=== PATIENT | female | born 1975 | race Two or more races ===

== ENCOUNTER 2022-02-09 17:59 | Inpatient (IN) | payer OTHER ==
[~2022-02-09] VITALS: Ht 157.5 cm; Wt 79.1 kg
[2022-02-09 18:28] LABS: Basophils # (auto) 0.1 10 ^3/uL (0-0.2); Basophils % (auto) 1.1 % (0.0-2.0); Hemoglobin 13.9 g/dL (12.2-16.2)
[2022-02-09 18:30] LABS: Eosinophils # (auto) 0.2 10 ^3/uL (0-0.8); Eosinophils % (auto) 1.7 % (0.0-7.0); Hematocrit 43.4 % (36.0-46.0); Lymphocytes # (auto) 4.5 10 ^3/uL (0.4-5.4); Lymphocytes % (auto) 48.4 % (10.0-50.0); Mean Corpuscular Hemoglobin 24.9 pg (28.0-32.0); Mean Corpuscular Volume 77.8 fL (80.0-100.0); Monocytes # (auto) 0.5 10 ^3/uL (0-1.3); Monocytes % (auto) 5.6 % (0.0-12.0); Neutrophils % (auto) 43.2 % (37.0-80.0); Nucleated Red Blood Cells % 0.1 %; Red Blood Cells 5.58 10^6/uL (4.0-5.20); White Blood Cell 9.3 10^3/uL (4.4-10.8)
[2022-02-09 18:45] LABS: Calcium 10.3 mg/dL (8.5-10.1); Potassium 3.7 mmol/L (3.5-5.1)
[2022-02-09] MEDS ORDERED: ONDANSETRON HCL 4 MG/2 ML VIAL IV ONE (18:45)
[2022-02-09] MEDS ORDERED: MORPHINE SULFATE INJ 2 MG/ml SYRG IV ONE (18:45)
[2022-02-09 18:48] LABS: Bilirubin, Total 0.5 mg/dL (0.2-1.0); Total Protein 7.8 g/dL (6.4-8.2)
[2022-02-09] MEDS ORDERED: SODIUM CHLORIDE 0.9% 1,000 ML IV ONE ×2 (19:00)
[2022-02-09] MEDS ORDERED: ONDANSETRON HCL 4 MG/2 ML VIAL IV PRN (21:00)
[2022-02-09] MEDS ORDERED: cefTRIAXone 1GM/50ML D5W 50 ML IV ONE (22:00)
[2022-02-09] MEDS ORDERED: MORPHINE SULFATE INJ 2 MG/ml SYRG IV PRN (22:00)
[2022-02-09] MEDS ORDERED: metroNIDAZOLE 500MG/100ML 100 ML IV ONE (22:00)
[2022-02-09] MEDS ORDERED: NITROGLYCERIN 0.4 MG SL TAB SL PRN (22:00)
[2022-02-09] MEDS: SODIUM CHLOR 0.9% PF (SALINE LOCK) 10ML VIAL/SYR IV SCH (22:18)
[2022-02-09] MEDS: hydrALAZINE HCL 20 MG/ML VL IV PRN (22:52)
[2022-02-09 22:53] LABS: Urine Bacteria NONE SEEN /hpf (None Seen); Urine Blood 1+ /uL (Negative); Urine Specific Gravity 1.006 (1.001-1.035); Urine WBC 1 /hpf (0 - 5)
[2022-02-09] MEDS: TEMAZEPAM 15 MG CAP PO PRN (23:03)
[2022-02-09] MEDS: IBUPROFEN 600 MG TAB PO PRN (23:48)
[2022-02-10] MEDS: MORPHINE SULFATE INJ 2 MG/ml SYRG IV PRN ×5 (01:11→18:23)
[2022-02-10] MEDS: TEMAZEPAM 15 MG CAP PO PRN ×2 (01:35→22:05)
[2022-02-10] MEDS: metroNIDAZOLE 500MG/100ML 100 ML IV SCH ×3 (05:37→22:05)
[2022-02-10 05:48] LABS: Basophils # (auto) 0.1 10 ^3/uL (0-0.2); Basophils % (auto) 1.1 % (0.0-2.0); Eosinophils # (auto) 0.1 10 ^3/uL (0-0.8); Eosinophils % (auto) 0.6 % (0.0-7.0); Hematocrit 43.9 % (36.0-46.0); Hemoglobin 14.5 g/dL (12.2-16.2); Lymphocytes # (auto) 2.9 10 ^3/uL (0.4-5.4); Lymphocytes % (auto) 26.9 % (10.0-50.0); Mean Corpuscular Hemoglobin 25.2 pg (28.0-32.0); Mean Corpuscular Volume 76.2 fL (80.0-100.0); Monocytes # (auto) 0.7 10 ^3/uL (0-1.3); Monocytes % (auto) 6.3 % (0.0-12.0); Neutrophils # (auto) 7.1 10 ^3/uL (1.6-8.6); Neutrophils % (auto) 65.1 % (37.0-80.0); Nucleated Red Blood Cells % 0.1 %; Red Blood Cells 5.76 10^6/uL (4.0-5.20); Red Cell Distribution Width 15.4 % (11.8-14.3); White Blood Cell 10.9 10^3/uL (4.4-10.8)
[2022-02-10] MEDS: SODIUM CHLOR 0.9% PF (SALINE LOCK) 10ML VIAL/SYR IV SCH ×3 (06:00→22:07)
[2022-02-10 06:10] LABS: Albumin 3.9 g/dL (3.4-5.0); Calcium 9.8 mg/dL (8.5-10.1); Potassium 3.3 mmol/L (3.5-5.1)
[2022-02-10 06:14] LABS: BUN/Creatinine Ratio 12.1; Bilirubin, Total 0.7 mg/dL (0.2-1.0); Total Protein 7.8 g/dL (6.4-8.2)
[2022-02-10] MEDS: FAMOTIDINE (10MG/ML) 2ML VL IV SCH (09:35)
[2022-02-10] MEDS: D5W/SOD CHL 0.45%/KCL 40MEQ 1,000 ML IV SCH ×2 (09:47→22:35)
[2022-02-10 10:34] LABS: INR 0.98 (0.9-1.15); Partial Thromboplastin Time 29.7 sec (24.6-33.4)
[2022-02-10] MEDS ORDERED: QUET300T74 PO (15:53)
[2022-02-10 16:00] VITALS: BP 161/86
[2022-02-10 17:00] VITALS: BP 161/86
[2022-02-10] MEDS: hydrALAZINE HCL 20 MG/ML VL IV PRN (18:16)
[2022-02-10] MEDS: IBUPROFEN 600 MG TAB PO PRN (20:06)
[2022-02-10] MEDS: cefTRIAXone 1GM/50ML D5W 50 ML IV SCH (20:58)
[2022-02-10 22:00] VITALS: BP 153/83
[2022-02-11] VITALS (7 sets, daily range): BP systolic 146–170; BP diastolic 75–97
[2022-02-11] MEDS: MORPHINE SULFATE INJ 2 MG/ml SYRG IV PRN ×5 (01:40→23:07)
[2022-02-11] MEDS: IBUPROFEN 600 MG TAB PO PRN ×2 (03:11→13:00)
[2022-02-11] MEDS: hydrALAZINE HCL 20 MG/ML VL IV PRN ×2 (03:11→13:02)
[2022-02-11] MEDS: metroNIDAZOLE 500MG/100ML 100 ML IV SCH ×3 (06:15→21:53)
[2022-02-11] MEDS: SODIUM CHLOR 0.9% PF (SALINE LOCK) 10ML VIAL/SYR IV SCH (06:15)
[2022-02-11] MEDS: FAMOTIDINE (10MG/ML) 2ML VL IV SCH (09:57)
[2022-02-11] MEDS: D5W/SOD CHL 0.45%/KCL 40MEQ 1,000 ML IV SCH (09:58)
[2022-02-11] MEDS ORDERED: MORPHINE SULFATE 4 MG/ML SYR/VIAL IV PRN (15:15)
[2022-02-11] MEDS ORDERED: HYDROmorphone HCL 2 MG/ML VL/or syr IV PRN ×3 (15:15→16:30)
[2022-02-11] MEDS ORDERED: METOCLOPRAMIDE HCL 5MG/ml INJ 2ml VIAL IV PRN (15:15)
[2022-02-11] MEDS ORDERED: MEPERIDINE HCL (25 MG/ML) 1ML VIAL ONE (15:16)
[2022-02-11] MEDS ORDERED: fentaNYL CITRATE 100 MCG/2 ML VL ONE (15:16)
[2022-02-11] MEDS ORDERED: ONDANSETRON HCL 4 MG/2 ML VIAL ONE (15:16)
[2022-02-11] MEDS ORDERED: ROCURONIUM 10MG/ML 10ML VIAL IV ONE (15:16)
[2022-02-11] MEDS ORDERED: DexAMETHasone SOD PHOS 10MG/1ML VIAL INJ ONE (15:16)
[2022-02-11] MEDS ORDERED: MIDAZOLAM HCL 2MG/2ML 2ml VIAL (1mg/ml) ONE (15:16)
[2022-02-11] MEDS ORDERED: NEOSTIGMINE 1 MG/ML INJ (10mg/10ML VIAL) ONE (15:16)
[2022-02-11] MEDS ORDERED: GLYCOPYRROLATE 0.2 MG/ML 1ML VIAL ONE (15:16)
[2022-02-11] MEDS ORDERED: SODIUM CHLORIDE LOCK 20 ML ONE (15:16)
[2022-02-11] MEDS ORDERED: ceFAZolin 1GM/50ML 100 ML IV ONE (15:24)
[2022-02-11] MEDS ORDERED: BUPIVACAINE W/ EPINEPH 0.25% INJ 50ML MDV ONE (15:58)
[2022-02-11] MEDS ORDERED: POVIDONE IODINE 10 % TOPICAL OINT 30GM TOP ONE (15:59)
[2022-02-11] MEDS ORDERED: SUCCINYLCHOLINE CHLORIDE 20 MG/ML 10ML VIAL IV ONE (16:12)
[2022-02-11] MEDS ORDERED: SUGAMMADEX 200mg/2ml Vial (100MG/ML) IV ONE (16:14)
[2022-02-11] MEDS: D5W/SOD CHL 0.45%/KCL 20MEQ 1,000 ML IV SCH (18:48)
[2022-02-11] MEDS: ceFAZolin 1GM/50ML 50 ML IV SCH (21:10)
[2022-02-11] MEDS: TEMAZEPAM 15 MG CAP PO PRN (21:54)
[2022-02-11] MEDS: cefTRIAXone 1GM/50ML D5W 50 ML IV SCH (23:06)
[2022-02-12] MEDS: D5W/SOD CHL 0.45%/KCL 20MEQ 1,000 ML IV SCH ×3 (00:50→17:30)
[2022-02-12] MEDS: MORPHINE SULFATE INJ 2 MG/ml SYRG IV PRN ×3 (03:12→11:27)
[2022-02-12 05:00] VITALS: BP 143/78
[2022-02-12] MEDS: ceFAZolin 1GM/50ML 50 ML IV SCH ×2 (05:58→15:15)
[2022-02-12] MEDS: IBUPROFEN 600 MG TAB PO PRN (05:58)
[2022-02-12] MEDS: metroNIDAZOLE 500MG/100ML 100 ML IV SCH ×2 (06:48→15:15)
[2022-02-12 08:30] VITALS: BP 147/80
[2022-02-12 09:00] VITALS: BP 147/80
[2022-02-12] MEDS: FAMOTIDINE (10MG/ML) 2ML VL IV SCH (09:24)
[2022-02-12 13:00] VITALS: BP 150/80
[2022-02-12] MEDS: HYDROcodone-ACET 5/325MG TAB PO PRN ×2 (16:27→23:07)
[2022-02-12] MEDS ORDERED: IBUPROFEN 600 MG TAB PO PRN (16:30)
[2022-02-12 17:00] VITALS: BP 150/82
[2022-02-12 22:00] VITALS: BP 151/89
[2022-02-13] MEDS: ceFAZolin 1GM/50ML 50 ML IV SCH ×2 (00:46→11:09)
[2022-02-13] MEDS: D5W/SOD CHL 0.45%/KCL 20MEQ 1,000 ML IV SCH ×2 (02:03→10:10)
[2022-02-13] MEDS: metroNIDAZOLE 500MG/100ML 100 ML IV SCH ×2 (02:05→11:10)
[2022-02-13] MEDS: HYDROcodone-ACET 5/325MG TAB PO PRN ×3 (03:55→12:14)
[2022-02-13 05:00] VITALS: BP 140/82
[2022-02-13 08:00] VITALS: BP 152/86
[2022-02-13 08:15] VITALS: BP 152/86
[2022-02-13] MEDS ORDERED: HYDR-4902 PO (10:31)
[2022-02-13] MEDS: FAMOTIDINE (10MG/ML) 2ML VL IV SCH (11:10)
== END 2022-02-13 15:03 | disposition home or self-care (01) | DRG 228 ==
LOC: ER 17:59 → OVERFLOW 21:58 → WEST WING 02-10 15:54
PROVIDERS: ADMIT Nurse Practitioner Family; ATTEND Internal Medicine
PROC: 0WUF0KZ Supplement Abdominal Wall with Nonautologous Tissue Substitute, Open Approach (ICD-10-PCS; principal; 2022-02-11 15:36)
DX: K42.0 Umbilical hernia with obstruction, without gangrene (principal); E66.9 Obesity, unspecified; E87.6 Hypokalemia; I10 Essential (primary) hypertension; K66.0 Peritoneal adhesions (postprocedural) (postinfection); R73.9 Hyperglycemia, unspecified; Z20.822 Contact with and (suspected) exposure to COVID-19; Z90.49 Acquired absence of other specified parts of digestive tract; Z68.31 Body mass index [BMI] 31.0-31.9, adult
CPT/HCPCS: 36415; 71045; 74176; 80053; 81001; 82150; 82310; 83605; 83690; 84702; 85025; 85610; 85730; 87040; 87426; 96361; 96365; 96375; G0378; J0330; J0690; J0696; J1100; J2250; J2405; J3490

== ENCOUNTER 2022-02-27 09:09 | Emergency (ER) | payer OTHER ==
[~2022-02-27] VITALS: Ht 157.5 cm; Wt 80.7 kg
[~2022-02-27 09:09] MED LIST: HYDR-4902 PO; QUET300T74 PO
[2022-02-27] MEDS ORDERED: QUET300T14 PO (10:06)
[2022-02-27 10:14] VITALS: BP 128/94
== END 2022-02-27 10:17 | disposition home or self-care (01) ==
LOC: ER 09:09
DX: F41.9 Anxiety disorder, unspecified (principal); F32.9 Major depressive disorder, single episode, unspecified; Z76.0 Encounter for issue of repeat prescription

== ENCOUNTER 2022-04-05 09:19 | Emergency (ER) | payer OTHER ==
[~2022-04-05] VITALS: Ht 160 cm; Wt 79.7 kg
[~2022-04-05 09:19] MED LIST changes: +QUET300T14 PO
[2022-04-05 10:53] VITALS: BP 128/85
[2022-04-05] MEDS ORDERED: TRAM-297 PO (10:59)
[2022-04-05] MEDS ORDERED: CLIN300C8 PO (10:59)
[2022-04-05] MEDS ORDERED: HYDROcodone-ACET 5/325MG TAB PO ONE (11:00)
== END 2022-04-05 11:07 | disposition home or self-care (01) ==
LOC: ER 09:25
DX: K04.7 Periapical abscess without sinus (principal); F41.9 Anxiety disorder, unspecified; F32.9 Major depressive disorder, single episode, unspecified; Z79.899 Other long term (current) drug therapy

== ENCOUNTER 2022-05-14 09:11 | Emergency (ER) | payer MEDICAID, OTHER ==
[~2022-05-14] VITALS: Ht 157.5 cm; Wt 79.2 kg
[~2022-05-14 09:11] MED LIST changes: +CLIN300C8 PO; -QUET300T14 PO; +TRAM-297 PO
[2022-05-14 10:55] VITALS: BP 95/60
[2022-05-14] MEDS ORDERED: QUET300T4 PO (11:33)
== END 2022-05-14 11:44 | disposition home or self-care (01) ==
LOC: ER 09:11
DX: F31.9 Bipolar disorder, unspecified (principal); Z76.0 Encounter for issue of repeat prescription; Z79.2 Long term (current) use of antibiotics; Z79.899 Other long term (current) drug therapy

== ENCOUNTER 2022-08-09 09:44 | Emergency (ER) | payer MEDICAID ==
[~2022-08-09] VITALS: Ht 160 cm; Wt 78.3 kg
[~2022-08-09 09:44] MED LIST changes: +QUET300T4 PO
[2022-08-09 10:30] VITALS: BP 127/73
[2022-08-09] MEDS ORDERED: QUET300T74 PO (10:53)
== END 2022-08-09 11:02 | disposition home or self-care (01) ==
LOC: ER 09:44
DX: F31.9 Bipolar disorder, unspecified (principal); Z76.0 Encounter for issue of repeat prescription; Z79.2 Long term (current) use of antibiotics; Z79.899 Other long term (current) drug therapy

== ENCOUNTER 2022-08-27 09:45 | Emergency (ER) | payer MEDICAID ==
[~2022-08-27] VITALS: Ht 157.5 cm; Wt 78.6 kg
[2022-08-27 10:02] VITALS: BP 144/75
[2022-08-27] MEDS ORDERED: AUG875T PO (10:37)
[2022-08-27] MEDS ORDERED: IBUP600T28 PO (10:37)
[2022-08-27] MEDS ORDERED: HYDROcodone-ACET 5/325MG TAB PO ONE (10:45)
[2022-08-27] MEDS ORDERED: DexAMETHasone SOD PHOS 10MG/1ML VIAL INJ IM ONE (10:45)
[2022-08-27] MEDS ORDERED: cefTRIAXone SOD 1,000 MG VL IM ONE (10:45)
== END 2022-08-27 11:31 | disposition home or self-care (01) ==
LOC: ER 09:45
DX: K04.7 Periapical abscess without sinus (principal); F41.9 Anxiety disorder, unspecified; F32.9 Major depressive disorder, single episode, unspecified
CPT/HCPCS: 96372; 99284; J0696; J1100

== ENCOUNTER 2022-09-25 08:45 | Emergency (ER) | payer MEDICAID ==
[~2022-09-25] VITALS: Ht 154.9 cm; Wt 79.0 kg
[~2022-09-25 08:45] MED LIST changes: +AUG875T PO; +CLIN300C70 PO; -CLIN300C8 PO; +IBUP1TAB5 PO
[2022-09-25 09:27] VITALS: BP 144/76
[2022-09-25] MEDS ORDERED: QUET300T14 PO (09:39)
== END 2022-09-25 09:44 | disposition home or self-care (01) ==
LOC: ER 08:45
DX: F41.9 Anxiety disorder, unspecified (principal); F32.9 Major depressive disorder, single episode, unspecified; G47.00 Insomnia, unspecified; Z76.0 Encounter for issue of repeat prescription

== ENCOUNTER 2023-10-24 20:39 | Emergency (ER) | payer MEDICAID, OTHER ==
[~2023-10-24 20:39] MED LIST changes: +CLIN1CAP70 PO; -CLIN300C70 PO; +QUET300T14 PO
[2023-10-25] MEDS ORDERED: BACL10TA PO (02:35)
[2023-10-25] MEDS ORDERED: IBUP-1454 PO (02:35)
[2023-10-25] MEDS ORDERED: IBUP1TAB5 PO (02:35)
[2023-10-25] MEDS: HYDROcodone-ACET 5/325MG TAB PO ONE (04:23)
[2023-10-25 05:53] VITALS: BP 143/88; PULSE 88; RESP 20; TEMP 98.4; O2SAT 99
== END 2023-10-25 05:53 | disposition home or self-care (01) ==
LOC: ER 20:39
DX: S13.8XXA Sprain of joints and ligaments of other parts of neck, initial encounter (principal); S43.491A Other sprain of right shoulder joint, initial encounter; F41.9 Anxiety disorder, unspecified; F32.9 Major depressive disorder, single episode, unspecified; Z79.899 Other long term (current) drug therapy; W22.8XXA Striking against or struck by other objects, initial encounter; Y93.89 Activity, other specified; Y92.89 Other specified places as the place of occurrence of the external cause; Y99.0 Civilian activity done for income or pay
CPT/HCPCS: 72040; 73030

== ENCOUNTER 2023-11-04 22:25 | Emergency (ER) | payer OTHER ==
[~2023-11-04] VITALS: Ht 157.5 cm; Wt 77.2 kg
[~2023-11-04 22:25] MED LIST changes: +BACL10TA PO
[2023-11-04] MEDS: cloNIDine HCL 0.1 MG TAB PO ONE (23:14)
[2023-11-05] MEDS ORDERED: AML5T PO (00:28)
[2023-11-05 01:19] VITALS: BP 127/71; PULSE 77; RESP 16; O2SAT 96
== END 2023-11-05 01:21 | disposition home or self-care (01) ==
LOC: ER 22:25
DX: R04.0 Epistaxis (principal); I10 Essential (primary) hypertension; F41.9 Anxiety disorder, unspecified; F32.A Depression, unspecified; Z79.899 Other long term (current) drug therapy

== ENCOUNTER 2024-03-24 06:34 | Emergency (ER) | payer SELFPAY ==
[~2024-03-24] VITALS: Ht 157.5 cm; Wt 77.3 kg
[~2024-03-24 06:34] MED LIST changes: +AML5T PO
[2024-03-24 07:19] VITALS: BP 145/80; PULSE 85; RESP 18; TEMP 97.1; O2SAT 97
[2024-03-24] MEDS ORDERED: TRAM50TA2 PO (07:51)
[2024-03-24] MEDS ORDERED: ACET500T58 PO (07:51)
--- NOTE | 2024-03-24 07:55 | ED.PDOC ---
Musculoskeletal HPI Comments Portions of this chart may have been created with an modal fluency direct voice recognition software. Occasional wrong-word or "sound-alike" substitutions may have occurred due to the inherent limitations of voice recognition software. Please read the chart carefully and recognize, using context, where these substitutions have occurred. This is a pleasant 49-year-old female with a history of torn rotator cuff that presents with a chief complaint of right shoulder pain. Onset occurred approximately six months ago admits this is a work-related injury. Reports she is currently following up with Noah Ibrahim on May 07 Chief Complaint: Upper Extremity Time Seen by MD: 06:59 Primary Care Provider: NONE Reviewed Notes: Nurses Notes, Medications, Allergies Allergies: Coded Allergies: NO KNOWN ALLERGIES (Unverified , 02/09/22) Home Meds Active Scripts Amlodipine Besylate (NORVASC TABLET) 5 Mg Tb, 1 TAB PO DAILY, #30 TAB 5 Refills Prov:ONUR VIEIRA BOND WRITER 11/05/23 Baclofen (Baclofen) 10 Mg Tab, 10 MG PO Q8HPRN PRN, #15 TAB as needed for muscle spasm Prov:SANCHEZMELISSAA Q MUSCULOSKELETAL PHYSICIAN 10/25/23 Ibuprofen Micronized (Ibuprofen) 600 Mg Tab, 600 MG PO Q6HPRN PRN, #20 TAB as needed for pain Prov:SANCHEZMELISSAA Q MUSCULOSKELETAL PHYSICIAN 10/25/23 Quetiapine Fumerate (Seroquel) 300 Mg Tab, 2 TAB PO QPM, #14 TAB 0 Refills As needed for insomnia Prov:SANCHEZTANYAALDA Q MUSCULOSKELETAL PHYSICIAN 09/25/22 Ibuprofen Micronized (Ibuprofen) 600 Mg Tab, 600 MG PO Q8HPRN PRN, #30 TAB 0 Refills Prov:SIENNA HENDRICKSON BOND WRITER 08/27/22 Amoxicillin & Pot Clavulanate (AUGMENTIN TABLET) 875 Mg Tb, 875 MG PO BID for 10 Days, #20 TAB 0 Refills Prov:SIENNA HENDRICKSON BOND WRITER 08/27/22 Quetiapine Fumarate (Quetiapine Fumarate ER) 300 Mg Tab, 2 TAB PO HS, #40 TAB Prov:BERNARDA FIGUEROA 08/09/22 Quetiapine Fumerate (Seroquel Xr) 300 Mg Tab, 2 TAB PO QPM, #40 TAB 0 Refills Prov:SIENNA HENDRICKSON Shawanda BOND WRITER 05/14/22 Tramadol Hcl (Ultram) 50 Mg Tab, 1 TAB PO TID, #20 TAB Prov:BERNARDA FIGUEROA 04/05/22 Clindamycin Hcl (Clindamycin Hcl) 300 Mg Cap, 300 MG PO QID, #40 CAP Prov:BERNARDA FIGUEROA 04/05/22 Hydrocodone-Acetaminophen (Hydrocodone Bitartrate/AC 5-325 mg) 1 Tab Tab, 1 TAB PO Q4HPRN PRN, #20 TAB Prov:CARLOS MANUEL THOMAS MD 02/13/22 Information Source: Patient Mode of Arrival: Ambulatory Past Medical History PAST MEDICAL HISTORY: Anxiety, Depression Surgical History: Denies all surgeries BOILER COVERER History: No Pertinent BOILER COVERER History Family History Family History: Reviewed,noncontributory to illness, No family hx of Cancer, No family hx of DM, No family hx of Heart seth, No family hx of HTN, No family hx ofKidney seth, No family hx of Liver seth, No family hx of Lung seth, No family hx of Stroke Social History Smoker: Non-Smoker Alcohol: Denies ETOH Use Drugs: Denies Drug Use Lives In: Home Physical Exam General Appearance: No Apparent Distress, Normal HEENT: Normal ENT Inspection, Pharynx Normal, TMs Normal Neck: Full Range of Motion, Non-Tender, Normal, Normal Inspection Respiratory: Chest Non-Tender, Lungs Clear, No Accessory Muscle Use, No Resp iratory Distress, Normal Breath Sounds Cardiovascular: No Edema, No JVD, No Murmur, No Gallop, Normal Peripheral Pulses, Regular Rate/Rhythm Breast Exam: Deferred Gastrointestinal: No Organomegaly, Non Tender, No Pulsatile Mass, Normal Bowel Sounds, Soft Genitalia: Deferred Pelvic: Deferred Rectal: Deferred Extremities: No calf tenderness, Normal capillary refill, Normal inspection, Normal range of motion, Non-tender, No pedal edema Musculoskeletal : Location: Right Extremity Location: Shoulder (normal on inspection. pain with abduction) Apperance: Normal Neurologic: Alert, education professional II-XII nml as Tested, No Motor Deficits, Normal Affect, Normal Mood, No Sensory Deficits Cerebellar Function: Normal Reflexes: Normal Skin: Dry, Normal Color, Warm Lymphatic: No Adenopathy Was a procedure done? Was a procedure done?: No Differential Diagnosis EXT Differential Diagnosis: Sprain, Other X-Ray, Labs, Meds, VS Vital Signs Date Time Temp Pulse Resp B/P (MAP) Pulse Ox O2 Delivery O2 Flow Rate FiO2 03/24/24 07:19 97.1 85 18 145/80 (101) 97 97.1 03/24/24 07:19 85 18 97 Room Air 03/24/24 06:39 97.1 85 18 145/80 (101) 97 X-Ray, Labs, Meds, VS Comment History and physical exam consistent with muscle injury Supportive care advised (rest, ice, heat, NSAIDs, stretching exercises) Massage muscles with cold pack or ice for 20 minutes 4 times per day. Usually most useful if there is swelling during the first 48 hours Heating pad on the most painful area for 20 minutes to relieve muscle spasm Sleep and the most comfortable sleeping position (usually on the side with knees bent) Light stretching, no strenuous activity, avoid frequent bending, avoid carrying heavy objects Discussed possible benefits of yoga and acupuncture Return precautions discussed including Inability to walk/bear weight Paresthesia/weakness/leg pain Fecal/urinary incontinence Any worsening symptoms Patient is stable for discharge at this time. External notes reviewed. Test results and diagnostic imaging interpreted. All diagnostic findings, discharge care, education and instructions provided Follow-up with PCP in 2 to 3 days Patient verbalized understanding and agreed to treatment plan Vital signs stable, afebrile, no acute distress noted Patient ambulatory with strong steady gait Advised to return precautions for any new or worsening symptoms, return to ER immediately for re-evaluation Patient is aware that the purpose of this visit was for an acute medical emergency requiring emergent stabilization. Chronic conditions, including malignancies have not been ruled out. Patient is instructed to follow up with PCP as directed and discharge instructions for continued care and workup. If unable to arrange follow-up, patient is to return to the emergency department for reassessment. Patient (parent or legal guardian if applicable) was given verbal and written discharge instructions and acknowledges understanding. Time of 1ST Reevaluation: 07:48 Reevaluation 1ST: Improved Patient Education/Counseling: Diagnosis, Treatment Family Education/Counseling: Diagnosis, Treatment Departure 1 Departure Time of Disposition: 07:49 Impression: Primary Impression: Internal derangement of shoulder Qualified Codes: M24.811 - Other specific joint derangements of right shoulder, not elsewhere classified Disposition: 01 HOME / SELF CARE / HOMELESS Condition: Stable e-Prescriptions Acetaminophen (Acetaminophen) 500 Mg Tab 500 MG PO QIDP for 10 Days, #40 TAB 0 Refills Prov: KRISTIE UGARTE NP 03/24/24 Tramadol Hcl (Tramadol Hcl) 50 Mg Tab 50 MG PO TIDPRN PRN for 10 Days, #30 TAB 0 Refills Prov: KRISTIE UGARTE NP 03/24/24 Discharged With: Self Critical Care Note Critical Care Time?: No Stability Stability form required: No Heart Score Heart Score: Heart Score Response (Comments) Value History N/A 0 EKG N/A 0 Age N/A 0 Risk Factors N/A 0 Troponin N/A 0 Total 0 KRISTIE UGARTE NP Mar 24, 2024 07:55
== END 2024-03-24 07:59 | disposition home or self-care (01) ==
LOC: ER 06:34
DX: M24.811 Other specific joint derangements of right shoulder, not elsewhere classified (principal); F32.A Depression, unspecified; F41.9 Anxiety disorder, unspecified; Z79.899 Other long term (current) drug therapy

== ENCOUNTER 2024-05-18 09:06 | Emergency (ER) | payer MEDICAID, OTHER ==
[~2024-05-18] VITALS: Ht 157.5 cm; Wt 81.3 kg
[~2024-05-18 09:06] MED LIST changes: +ACET500T58 PO; +TRAM50TA2 PO
[2024-05-18 09:59] VITALS: BP 154/90; PULSE 75; RESP 16; TEMP 97.7; O2SAT 95
[2024-05-18] MEDS ORDERED: QUET50TA27 PO (10:24)
[2024-05-18] MEDS ORDERED: QUET300T4 PO (10:32)
--- NOTE | 2024-05-18 10:32 | ED.PDOC ---
Psychiatric HPI Comments 49 year old with hx of bipolar presents for medication refill Chief Complaint: Anxiety Time Seen by MD: 09:42 Primary Care Provider: NONE Reviewed Notes: Nurses Notes, Medications, Allergies Information Source: Patient Mode of Arrival: Ambulatory Past Medical History PAST MEDICAL HISTORY: Anxiety, Depression Surgical History: Denies all surgeries SPORTS MARKETER History: No Pertinent SPORTS MARKETER History Family History Family History: Reviewed,noncontributory to illness, No family hx of Cancer, No family hx of DM, No family hx of Heart seth, No family hx of HTN, No family hx ofKidney seth, No family hx of Liver seth, No family hx of Lung seth, No family hx of Stroke Social History Smoker: Non-Smoker Alcohol: Denies ETOH Use Drugs: Denies Drug Use Lives In: Home All Other Systems: Reviewed and Negative (per hpi) Physical Exam General Appearance: No Apparent Distress, Normal HEENT: Normal ENT Inspection, Pharynx Normal, TMs Normal Neck: Full Range of Motion, Non-Tender, Normal, Normal Inspection Respiratory: Chest Non-Tender, Lungs Clear, No Accessory Muscle Use, No Respiratory Distress, Normal Breath Sounds Cardiovascular: No Edema, No JVD, No Murmur, No Gallop, Normal Peripheral Pulses, Regular Rate/Rhythm Breast Exam: Deferred Gastrointestinal: No Organomegaly, Non Tender, No Pulsatile Mass, Normal Bowel Sounds, Soft Genitalia: Deferred Pelvic: Deferred Rectal: Deferred Extremities: No calf tenderness, Normal capillary refill, Normal inspection, Normal range of motion, Non-tender, No pedal edema Musculoskeletal : Apperance: Normal Neurologic: Alert, meteorological technician II-XII nml as Tested, No Motor Deficits, Normal Affect, Normal Mood, No Sensory Deficits Cerebellar Function: Normal Reflexes: Normal Skin: Dry, Normal Color, Warm Lymphatic: No Adenopathy Was a procedure done? Was a procedure done?: No Psych Differential Dx Psych. Differential Dx: Anxiety, Bipolar Disorder X-Ray, Labs, Meds, VS Vital Signs Date Time Temp Pulse Resp B/P (MAP) Pulse Ox O2 Delivery O2 Flow Rate FiO2 05/18/24 09:59 97.7 75 16 154/90 (111) 95 97.7 05/18/24 09:59 75 16 95 Room Air 05/18/24 09:20 97.7 75 16 154/90 (111) 95 X-Ray, Labs, Meds, VS Comment Med refill Time of 1ST Reevaluation: 10:30 Reevaluation 1ST: Improved Patient Education/Counseling: Diagnosis, Treatment Family Education/Counseling: Diagnosis, Treatment Departure 1 Departure Time of Disposition: 10:32 Impression: Primary Impression: History of bipolar disorder Additional Impression: Encounter for medication refill Disposition: HOME / SELF CARE / HOMELESS Condition: Stable e-Prescriptions Quetiapine Fumerate (Seroquel Xr) 300 Mg Tab 2 TAB PO QPM for 30 Days, #60 TAB 0 Refills Prov: KRISTIE UGARTE NP 05/18/24 Discharged With: Self Critical Care Note Critical Care Time?: No Stability Stability form required: No Heart Score Heart Score: Heart Score Response (Comments) Value History N/A 0 EKG N/A 0 Age N/A 0 Risk Factors N/A 0 Troponin N/A 0 Total 0 KRISTIE UGARTE NP May 18, 2024 10:32
== END 2024-05-18 10:41 | disposition home or self-care (01) ==
LOC: ER 09:06
DX: F31.9 Bipolar disorder, unspecified (principal); F41.9 Anxiety disorder, unspecified; Z76.0 Encounter for issue of repeat prescription

== ENCOUNTER 2024-08-09 09:09 | Emergency (ER) | payer MEDICAID ==
[~2024-08-09] VITALS: Ht 157.5 cm; Wt 82.1 kg
[2024-08-09 09:31] VITALS: BP 124/82; PULSE 84; RESP 16; TEMP 97.9; O2SAT 95
--- NOTE | 2024-08-09 09:38 | ED.PDOC ---
Psychiatric HPI Comments 49-year-old with a history of bipolar presents for medication refill no other complaint or concern Chief Complaint: Anxiety Time Seen by MD: 09:18 Primary Care Provider: unknown Reviewed Notes: Nurses Notes, Medications, Allergies Information Source: Patient Mode of Arrival: Ambulatory Past Medical History PAST MEDICAL HISTORY: Anxiety, Depression Surgical History: Denies all surgeries HEALTH PROFESSOR History: No Pertinent HEALTH PROFESSOR History Family History Family History: Reviewed,noncontributory to illness, No family hx of Cancer, No family hx of DM, No family hx of Heart seth, No family hx of HTN, No family hx ofKidney seth, No family hx of Liver seth, No family hx of Lung seth, No family hx of Stroke Social History Smoker: Non-Smoker Alcohol: Denies ETOH Use Drugs: Denies Drug Use Lives In: Home All Other Systems: Reviewed and Negative (Per HPI) Physical Exam General Appearance: No Apparent Distress, Normal HEENT: Normal ENT Inspection, Pharynx Normal, TMs Normal Neck: Full Range of Motion, Non-Tender, Normal, Normal Inspection Respiratory: Chest Non-Tender, Lungs Clear, No Accessory Muscle Use, No Respiratory Distress, Normal Breath Sounds Cardiovascular: No Edema, No JVD, No Murmur, No Gallop, Normal Peripheral Pulses, Regular Rate/Rhythm Breast Exam: Deferred Gastrointestinal: No Organomegaly, Non Tender, No Pulsatile Mass, Normal Bowel Sounds, Soft Genitalia: Deferred Pelvic: Deferred Rectal: Deferred Extremities: No calf tenderness, Normal capillary refill, Normal inspection, Normal range of motion, Non-tender, No pedal edema Musculoskeletal : Apperance: Normal Neurologic: Alert, aluminum siding mechanic II-XII nml as Tested, No Motor Deficits, Normal Affect, Normal Mood, No Sensory Deficits Cerebellar Function: Normal Reflexes: Normal Skin: Dry, Normal Color, Warm Lymphatic: No Adenopathy Was a procedure done? Was a procedure done?: No Psych Differential Dx Psych. Differential Dx: Bipolar Disorder X-Ray, Labs, Meds, VS Vital Signs Date Time Temp Pulse Resp B/P (MAP) Pulse Ox O2 Delivery O2 Flow Rate FiO2 08/09/24 09:31 97.9 84 16 124/82 (96) 95 97.9 08/09/24 09:31 84 16 95 Room Air 08/09/24 09:14 97.9 84 16 124/82 (96) 95 97.9 X-Ray, Labs, Meds, VS Comment No episodes of SI, manic Patient is stable for discharge at this time. External notes reviewed. Test results and diagnostic imaging interpreted. All diagnostic findings, discharge care, education and instructions provided Follow-up with PCP in 2 to 3 days Patient verbalized understanding and agreed to treatment plan Vital signs stable, afebrile, no acute distress noted Patient ambulatory with strong steady gait Advised to return precautions for any new or worsening symptoms, return to ER immediately for re-evaluation Patient is aware that the purpose of this visit was for an acute medical emergency requiring emergent stabilization. Chronic conditions, including malignancies have not been ruled out. Patient is instructed to follow up with PCP as directed and discharge instructions for continued care and workup. If unable to arrange follow-up, patient is to return to the emergency department for reassessment. Patient (parent or legal guardian if applicable) was given verbal and written discharge instructions and acknowledges understanding. Time of 1ST Reevaluation: 09:37 Reevaluation 1ST: Improved Patient Education/Counseling: Diagnosis, Treatment Family Education/Counseling: Diagnosis, Treatment Departure 1 Departure Time of Disposition: 09:38 Impression: Primary Impression: History of bipolar disorder Additional Impression: Encounter for medication refill Disposition: HOME / SELF CARE / HOMELESS Condition: Stable e-Prescriptions Quetiapine Fumerate (Seroquel Xr) 300 Mg Tab 2 TAB PO QPM for 30 Days, #60 TAB 0 Refills Prov: KRISTIE UGARTE NP 08/09/24 Discharged With: Self Critical Care Note Critical Care Time?: No Stability Stability form required: No Heart Score Heart Score: Heart Score Response (Comments) Value History N/A 0 EKG N/A 0 Age N/A 0 Risk Factors N/A 0 Troponin N/A 0 Total 0 KRISTIE UGARTE NP Aug 09, 2024 09:38
== END 2024-08-09 09:55 | disposition home or self-care (01) ==
LOC: ER 09:09
DX: F31.9 Bipolar disorder, unspecified (principal); F41.9 Anxiety disorder, unspecified; Z76.0 Encounter for issue of repeat prescription

== ENCOUNTER 2024-10-24 08:57 | Emergency (ER) | payer MEDICAID ==
[~2024-10-24] VITALS: Ht 157.5 cm; Wt 82.6 kg
[2024-10-24 09:02] VITALS: BP 144/89; PULSE 85; RESP 18; TEMP 97.7; O2SAT 95
--- NOTE | 2024-10-24 09:39 | ED.PDOC ---
History of Present Illness HPI Comments 49-year-old female presents with a chief complaint of medication refill request. Patient denies any symptoms at this time, just states that she would like a refill of her Seroquel 300mg BID. Patient just got medical insurance and is awaiting an appointment to see a psychiatrist. Chief Complaint: Medical Clearance Time Seen by MD: 09:33 Primary Care Provider: NONE Reviewed Notes: Medications, Allergies Allergies: Coded Allergies: NO KNOWN ALLERGIES (Unverified , 02/09/22) Home Meds Active Scripts Quetiapine Fumerate (Seroquel Xr) 300 Mg Tab, 2 TAB PO QPM for 30 Days, #60 TAB 0 Refills Prov:SHANELKRISTIE Bhupinder BOXER OPERATOR 08/09/24 Acetaminophen (Acetaminophen) 500 Mg Tab, 500 MG PO QIDP for 10 Days, #40 TAB 0 Refills Prov:LEELA UGARTEO Bhupinder BOXER OPERATOR 03/24/24 Tramadol Hcl (Tramadol Hcl) 50 Mg Tab, 50 MG PO TIDPRN PRN for 10 Days, #30 TAB 0 Refills Prov:SHANELKRISTIE F BOXER OPERATOR 03/24/24 Amlodipine Besylate (NORVASC TABLET) 5 Mg Tb, 1 TAB PO DAILY, #30 TAB 5 Refills Prov:ONUR VIEIRA WIRELESS SALES ASSOCIATE 11/05/23 Baclofen (Baclofen) 10 Mg Tab, 10 MG PO Q8HPRN PRN, #15 TAB as needed for muscle spasm Prov:ERLIN SANCHEZ Q BOXER OPERATOR 10/25/23 Ibuprofen Micronized (Ibuprofen) 600 Mg Tab, 600 MG PO Q6HPRN PRN, #20 TAB as needed for pain Prov:ERLIN SANCHEZ Q BOXER OPERATOR 10/25/23 Quetiapine Fumerate (Seroquel) 300 Mg Tab, 2 TAB PO QPM, #14 TAB 0 Refills As needed for insomnia Prov:ERLIN SANCHEZ Q BOXER OPERATOR 09/25/22 Ibuprofen Micronized (Ibuprofen) 600 Mg Tab, 600 MG PO Q8HPRN PRN, #30 TAB 0 Refills Prov:SIENNA HENDRICKSON WIRELESS SALES ASSOCIATE 08/27/22 Amoxicillin & Pot Clavulanate (AUGMENTIN TABLET) 875 Mg Tb, 875 MG PO BID for 10 Days, #20 TAB 0 Refills Prov:SIENNA HENDRICKSON WIRELESS SALES ASSOCIATE 08/27/22 Quetiapine Fumarate (Quetiapine Fumarate ER) 300 Mg Tab, 2 TAB PO HS, #40 TAB Prov:BERNARDA FIGUEROA 08/09/22 Quetiapine Fumerate (Seroquel Xr) 300 Mg Tab, 2 TAB PO QPM, #40 TAB 0 Refills Prov:SIENNA HENDRICKSON WIRELESS SALES ASSOCIATE 05/14/22 Tramadol Hcl (Ultram) 50 Mg Tab, 1 TAB PO TID, #20 TAB Prov:BERNARDA FIGUEROA 04/05/22 Clindamycin Hcl (Clindamycin Hcl) 300 Mg Cap, 300 MG PO QID, #40 CAP Prov:BERNARDA FIGUEROA 04/05/22 Hydrocodone-Acetaminophen (Hydrocodone Bitartrate/AC 5-325 mg) 1 Tab Tab, 1 TAB PO Q4HPRN PRN, #20 TAB Prov:CARLOS MANUEL THOMAS MD 02/13/22 Information Source: Patient Mode of Arrival: Ambulatory Severity: Moderate Timing: Minutes Duration: Since onset Prehospital treatment: None Past Medical History PAST MEDICAL HISTORY: Anxiety, Depression Surgical History: Denies all surgeries CONSTRUCTION IRONWORKER HELPER History: No Pertinent CONSTRUCTION IRONWORKER HELPER History Family History Family History: Reviewed,noncontributory to illness, No family hx of Cancer, No family hx of DM, No family hx of Heart seth, No family hx of HTN, No family hx ofKidney seth, No family hx of Liver seth, No family hx of Lung seth, No family hx of Stroke Social History Smoker: Non-Smoker Alcohol: Denies ETOH Use Drugs: Denies Drug Use Lives In: Home Constitutional: denies: chills, diaphoresis, fatigue, fever, malaise, sweats, weakness, others EENTM: denies: blurred vision, double vision, ear bleeding, ear discharge, ear drainage, ear pain, ear ringing, eye pain, eye redness, hearing loss, mouth pain, mouth swelling, nasal discharge, nose bleeding, nose congestion, nose pain, photophobia, tearing, throat pain, throat swelling, voice changes, others Respiratory: denies: cough, hemoptysis, orthopnea, SOB at rest, shortness of breath, SOB with excertion, stridor, wheezing, others Cardiovascular: denies: chest pain, dizzy spells, diaphoresis, Dyspnea on exertion, edema, irregular heart beat, left arm pain, lightheadedness, palpitations, PND, syncope, others Gastrointestinal: denies: abdomen distended, abdominal pain, blood streaked bowels, constipated, diarrhea, dysphagia, difficulty swallowing, hematemesis, melena, nausea, poor appetite, poor fluid intake, rectal bleeding, rectal pain, vomiting, others Genitourinary: denies: abnormal vagina bleeding, burning, dyspareunia, dysuria, flank pain, frequency, hematuria, incontinence, pain, , vagina discharge, urgency, others Neurological: denies: dizziness, fainting, headache, left sided numbness, left sided weakness, numbness, paresthesia, pre-existing deficit, right sided numbness, right sided weakness, seizure, speech problems, tingling, tremors, weakness, others Musculoskeletal: denies: back pain, gout, joint pain, joint swelling, muscle pain, muscle stiffness, neck pain, others Integumetry: denies: bruises, change in color, change in hair/nails, dryness, laceration, lesions, lumps, rash, wounds, others Allergic/Immunocompromised: denies: Difficulty Healing, Frequent Infections, Hives, Itching, others Hematologic/Lymphatic: denies: anemia, blood clots, easy bleeding, easy bruising, swollen glands, others Endocrine: denies: excessive hunger, excessive sweating, excessive thirst, excessive urination, flushing, intolerance to cold, intolerance to heat, unexplained weight gain, unexplained weight loss, others Psychiatric: denies: anxiety, bipolar disorder, depression, hopeless, panic disorder, schizophrenia, sleepless, suicidal, others All Other Systems: Reviewed and Negative ( PER HPI) Physical Exam General Appearance: Moderate Distress, Normal HEENT: Normal ENT Inspection, Pharynx Normal, TMs Normal Neck: Full Range of Motion, Non-Tender, Normal, Normal Inspection Respiratory: Chest Non-Tender, Lungs Clear, No Accessory Muscle Use, No Respiratory Distress, Normal Breath Sounds Cardiovascular: No Edema, No JVD, No Murmur, No Gallop, Normal Peripheral Pulses, Regular Rate/Rhythm Breast Exam: Deferred Gastrointestinal: No Organomegaly, Non Tender, No Pulsatile Mass, Normal Bowel Sounds, Soft Genitalia: Deferred Pelvic: Deferred Rectal: Deferred Extremities: No calf tenderness, Normal capillary refill, Normal inspection, Normal range of motion, Non-tender, No pedal edema Musculoskeletal : Apperance: Normal Neurologic: Alert, slip mixer II-XII nml as Tested, No Motor Deficits, Normal Affect, Normal Mood, No Sensory Deficits Cerebellar Function: Normal Reflexes: Normal Skin: Dry, Normal Color, Warm Peripheral Pulses: 3+ Radial (R), 3+ Radial (L) Lymphatic: No Adenopathy Was a procedure done? Was a procedure done?: No Differential Dx Considerations may include: Schizophrenia X-Ray, Labs, Meds, VS Vital Signs Date Time Temp Pulse Resp B/P (MAP) Pulse Ox O2 Delivery O2 Flow Rate FiO2 10/24/24 09:02 85 18 95 Room Air* 0 21 10/24/24 09:02 97.7 85 18 144/89 (107) 95 97.7 Patient alert. No sign of distress. Vitals stable. Answering questions. Denies suicidal homicidal ideation. Vitals stable. Ambulating. She came in for medication refill. She was given prescription of Seroquel. Was told to follow up with her psychiatrist. Was told to follow up with her primary care physician. Was told to come back if there is any problem. Time of 1ST Reevaluation: 10:03 Reevaluation 1ST: Improved Patient Education/Counseling: Diagnosis, Treatment Family Education/Counseling: No Family Present SEPSIS Sepsis Screen Date sepsis recognized/suspect: Oct 24, 2024 Time Sepsis recognized/suspect: 901 Recent Procedure: No On Antibiotic Therapy: No Respiratory Rate >20: No Heart Rate >90: No Temp<36 C (96.8 F) or >38.3 C: No SBP <90 or MAP <65 mmHG: No New Acute Mental Status Change: No Is the patient on CPAP, BIPAP,: No Vital Signs Date Time Temp Pulse Resp B/P (MAP) Pulse Ox O2 Delivery O2 Flow Rate FiO2 10/24/24 09:02 85 18 95 Room Air* 0 21 10/24/24 09:02 97.7 85 18 144/89 (107) 95 97.7 Departure 1 Departure Time of Disposition: 10:20 Impression: Primary Impression: History of bipolar disorder Disposition: 01 HOME / SELF CARE / HOMELESS Condition: Good e-Prescriptions Quetiapine Fumerate (Seroquel) 300 Mg Tab 1 TAB PO QPM for 20 Days, #20 TAB 1 Refill Prov: DEMIAN EMERY MD 10/24/24 Discharged With: Self Critical Care Note Critical Care Time?: No Stability Stability form required: No Heart Score Heart Score: Heart Score Response (Comments) Value History N/A 0 EKG N/A 0 Age N/A 0 Risk Factors N/A 0 Troponin N/A 0 Total 0 I personally scribed for DEMIAN EMERY MD ([email or web address]) on 10/24/24 at 09:39. Electronically submitted by Hossein Gonzalez ([email or web address]). DEMIAN EMERY MD Oct 24, 2024 09:39
[2024-10-24] MEDS ORDERED: QUET300T14 PO (10:20)
== END 2024-10-24 10:38 | disposition home or self-care (01) ==
LOC: ER 08:57
DX: F31.9 Bipolar disorder, unspecified (principal); F41.9 Anxiety disorder, unspecified; Z76.0 Encounter for issue of repeat prescription; Z79.899 Other long term (current) drug therapy

== ENCOUNTER 2024-12-24 10:16 | Emergency (ER) | payer MEDICAID ==
[~2024-12-24] VITALS: Ht 157.5 cm; Wt 82.1 kg
[2024-12-24] MEDS ORDERED: QUET300T4 PO (10:30)
--- NOTE | 2024-12-24 10:30 | ED.PDOC ---
History of Present Illness HPI Comments A 49 YEAR OLD FEMALE PRESENTS TO THE ED WITH COMPLAINT OF MEDICATION REFILL. PATIENT STATES SHE HAS A HISTORY OF BIPOLAR DISORDER AND TAKES SEROQUEL 300 MG B.I.D., BUT RAN OUT OF THIS MEDICATION RECENTLY. PATIENT IS REQUESTING A MEDICATION REFILL FOR THIS MEDICATION. PATIENT DENIES FEVER, CHILLS, SHORTNESS OF BREATH, CHEST PAIN, ABDOMINAL PAIN, NAUSEA, VOMITING, HEADACHE, OR OTHER COMPLAINTS. NO OTHER SYMPTOMS OR MODIFYING FACTORS AT THIS TIME. PATIENT IS ALERT, ORIENTED X 4, AND HAS STEADY GAIT. Chief Complaint: Mental Health Time Seen by MD: 10:20 Primary Care Provider: NONE Reviewed Notes: Nurses Notes, Medications, Allergies Allergies: Coded Allergies: NO KNOWN ALLERGIES (Unverified , 02/09/22) Home Meds Active Scripts Quetiapine Fumerate (Seroquel Xr) 300 Mg Tab, 2 TAB PO QPM for 30 Days, #60 TAB 0 Refills Prov:BERNARDA FIGUEROA 12/24/24 Quetiapine Fumerate (Seroquel) 300 Mg Tab, 1 TAB PO QPM for 20 Days, #20 TAB 1 Refill Prov:DEMIAN EMERY MD 10/24/24 Acetaminophen (Acetaminophen) 500 Mg Tab, 500 MG PO QIDP for 10 Days, #40 TAB 0 Refills Prov:KRISTIE UGARTE NP 03/24/24 Tramadol Hcl (Tramadol Hcl) 50 Mg Tab, 50 MG PO TIDPRN PRN for 10 Days, #30 TAB 0 Refills Prov:KRISTIE UGARTE NP 03/24/24 Amlodipine Besylate (NORVASC TABLET) 5 Mg Tb, 1 TAB PO DAILY, #30 TAB 5 Refills Prov:ONUR VIEIRA 11/05/23 Baclofen (Baclofen) 10 Mg Tab, 10 MG PO Q8HPRN PRN, #15 TAB as needed for muscle spasm Prov:ERLIN SANCHEZ POISER BALANCE 10/25/23 Ibuprofen Micronized (Ibuprofen) 600 Mg Tab, 600 MG PO Q6HPRN PRN, #20 TAB as needed for pain Prov:ERLIN SANCHEZ POISER BALANCE 10/25/23 Quetiapine Fumerate (Seroquel) 300 Mg Tab, 2 TAB PO QPM, #14 TAB 0 Refills As needed for insomnia Prov:ERLIN SANCHEZ POISER BALANCE 09/25/22 Ibuprofen Micronized (Ibuprofen) 600 Mg Tab, 600 MG PO Q8HPRN PRN, #30 TAB 0 Refills Prov:HENDRICKSONSIENNA LARRY IP ATTORNEY 08/27/22 Amoxicillin & Pot Clavulanate (AUGMENTIN TABLET) 875 Mg Tb, 875 MG PO BID for 10 Days, #20 TAB 0 Refills Prov:SIENNA HENDRICKSON IP ATTORNEY 08/27/22 Quetiapine Fumarate (Quetiapine Fumarate ER) 300 Mg Tab, 2 TAB PO HS, #40 TAB Prov:BERNARDA FIGUEROA 08/09/22 Quetiapine Fumerate (Seroquel Xr) 300 Mg Tab, 2 TAB PO QPM, #40 TAB 0 Refills Prov:SIENNA HENDRICKSON IP ATTORNEY 05/14/22 Tramadol Hcl (Ultram) 50 Mg Tab, 1 TAB PO TID, #20 TAB Prov:BERNARDA FIGUEROA 04/05/22 Clindamycin Hcl (Clindamycin Hcl) 300 Mg Cap, 300 MG PO QID, #40 CAP Prov:BERNARDA FIGUEROA 04/05/22 Hydrocodone-Acetaminophen (Hydrocodone Bitartrate/AC 5-325 mg) 1 Tab Tab, 1 TAB PO Q4HPRN PRN, #20 TAB Prov:CARLOS MANUEL THOMAS MD 02/13/22 Information Source: Patient Mode of Arrival: Ambulatory Severity: None Timing: Days Duration: Since onset, Other Prehospital treatment: None Medication Refill: For: Other (MEDICATION REFILL) Past Medical History PAST MEDICAL HISTORY: Anxiety, Depression Past Medical History (Other): BIPOLAR DISORDER Surgical History: Denies all surgeries REMOTE SENSING TECHNICIAN 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: No 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 History Family History Family History: Reviewed,noncontributory to illness, No family hx of Cancer, No family hx of DM, No family hx of Heart seth, No family hx of HTN, No family hx ofKidney seth, No family hx of Liver seth, No family hx of Lung seth, No family hx of Stroke Social History Smoker: Non-Smoker Alcohol: Denies ETOH Use Drugs: Denies Drug Use Lives In: Home Constitutional: denies: chills, diaphoresis, fatigue, fever, malaise, sweats, weakness, others EENTM: denies: blurred vision, double vision, ear bleeding, ear discharge, ear drainage, ear pain, ear ringing, eye pain, eye redness, hearing loss, mouth pain, mouth swelling, nasal discharge, nose bleeding, nose congestion, nose pain, photophobia, tearing, throat pain, throat swelling, voice changes, others Respiratory: denies: cough, hemoptysis, orthopnea, SOB at rest, shortness of breath, SOB with excertion, stridor, wheezing, others Cardiovascular: denies: chest pain, dizzy spells, diaphoresis, Dyspnea on exertion, edema, irregular heart beat, left arm pain, lightheadedness, palpitations, PND, syncope, others Gastrointestinal: denies: abdomen distended, abdominal pain, blood streaked bowels, constipated, diarrhea, dysphagia, difficulty swallowing, hematemesis, melena, nausea, poor appetite, poor fluid intake, rectal bleeding, rectal pain, vomiting, others Genitourinary: denies: abnormal vagina bleeding, burning, dyspareunia, dysuria, flank pain, frequency, hematuria, incontinence, pain, , vagina discharge, urgency, others Neurological: denies: dizziness, fainting, headache, left sided numbness, left sided weakness, numbness, paresthesia, pre-existing deficit, right sided nu mbness, right sided weakness, seizure, speech problems, tingling, tremors, weakness, others Musculoskeletal: denies: back pain, gout, joint pain, joint swelling, muscle pain, muscle stiffness, neck pain, others Integumetry: denies: bruises, change in color, change in hair/nails, dryness, laceration, lesions, lumps, rash, wounds, others Allergic/Immunocompromised: denies: Difficulty Healing, Frequent Infections, Hives, Itching, others Hematologic/Lymphatic: denies: anemia, blood clots, easy bleeding, easy bruising, swollen glands, others Endocrine: denies: excessive hunger, excessive sweating, excessive thirst, excessive urination, flushing, intolerance to cold, intolerance to heat, unexplained weight gain, unexplained weight loss, others Psychiatric: denies: anxiety, bipolar disorder, depression, hopeless, panic disorder, schizophrenia, sleepless, suicidal, others All Other Systems: Reviewed and Negative Physical Exam General Appearance: No Apparent Distress, Normal HEENT: Normal ENT Inspection, PERRL/EOMI, Pharynx Normal, TMs Normal Neck: Full Range of Motion, Non-Tender, Normal, Normal Inspection Respiratory: Chest Non-Tender, Lungs Clear, No Accessory Muscle Use, No Respiratory Distress, Normal Breath Sounds Cardiovascular: No Edema, No JVD, No Murmur, No Gallop, Normal Peripheral Pulses, Regular Rate/Rhythm Breast Exam: Deferred Gastrointestinal: No Organomegaly, Non Tender, No Pulsatile Mass, Normal Bowel Sounds, Soft Genitalia: Deferred Pelvic: Deferred Rectal: Deferred Extremities: No calf tenderness, Normal capillary refill, Normal inspection, Normal range of motion, Non-tender, No pedal edema Musculoskeletal : Apperance: Normal Neurologic: Alert, vegetable tier II-XII nml as Tested, No Motor Deficits, Normal Affect, Normal Mood, No Sensory Deficits Cerebellar Function: Normal Reflexes: Normal Skin: Dry, Normal Color, Warm Peripheral Pulses: 2+ carotid (R), 2+ carotid (L) Lymphatic: No Adenopathy Was a procedure done? Was a procedure done?: No Differential Dx Considerations may include: MEDICATION REFILL, HISTORY OF BIPOLAR DISORDER X-Ray, Labs, Meds, VS Vital Signs Date Time Temp Pulse Resp B/P (MAP) Pulse Ox O2 Delivery O2 Flow Rate FiO2 12/24/24 10:18 98.2 95 18 179/96 97 98.2 X-Ray, Labs, Meds, VS Comment EXTERNAL MEDICAL RECORDS REVIEWED: [NONE] INDEPENDENT HISTORIANS: [NONE] SOCIAL DETERMINANTS OF HEALTH: [NONE] LABS ORDERED: NONE REVIEWED AND INTERPRETED RESULTS: NONE IMAGING ORDERED: NONE TREATMENTS ORDERED: NONE PROCEDURES PERFORMED: NONE CRITICAL CARE TIME: NONE I HAVE DISCUSSED THE PATIENT WITH THE ATTENDING PHYSICIAN DR. EMERY AND HE AGREES WITH THE PATIENT'S PLAN OF CARE AND DISPOSITION. BASED ON HISTORY OF PRESENT ILLNESS, AND PHYSICAL EXAM, PATIENT WILL BE DISCHARG ED HOME. DISCUSSED PLAN FOR DISCHARGE HOME WITH RX [SEROQUEL 300 MG B.I.D.]. MEDICATION WARNINGS GIVEN. SHARED DECISION MAKING: PATIENT INSTRUCTED TO FOLLOW UP WITH PRIMARY CARE PROVIDER IN 1-2 DAYS FOR RE-EVALUATION OF SYMPTOMS. PATIENT VERBALIZES UNDERSTANDING TO RETURN TO ED FOR NEW OR WORSENING SYMPTOMS OR IF FOLLOW UP WITH PCP CANNOT BE OBTAINED. PATIENT FEELS COMFORTABLE GOING HOME AT THIS TIME. ALL QUESTIONS ADDRESSED AT TIME OF DISCHARGE. Time of 1ST Reevaluation: 10:40 Reevaluation 1ST: Improved Patient Education/Counseling: Diagnosis, Treatment, Need For Follow Up Family Education/Counseling: Diagnosis, Treatment, Need For Follow Up Medical Screening: No EMC Exist At This Time SEPSIS Sepsis Screen Date sepsis recognized/suspect: Dec 24, 2024 Time Sepsis recognized/suspect: 1019 Recent Procedure: No On Antibiotic Therapy: No Respiratory Rate >20: No Heart Rate >90: No Temp<36 C (96.8 F) or >38.3 C: No SBP <90 or MAP <65 mmHG: No New Acute Mental Status Change: No Is the patient on CPAP, BIPAP,: No Vital Signs Date Time Temp Pulse Resp B/P (MAP) Pulse Ox O2 Delivery O2 Flow Rate FiO2 12/24/24 10:18 98.2 95 18 179/96 97 98.2 Departure 1 Departure Time of Disposition: 10:40 Impression: Primary Impression: Encounter for medication refill Additional Impression: History of bipolar disorder Disposition: HOME / SELF CARE / HOMELESS Condition: Stable Additional Instructions: FOLLOW-UP WITH PCP IN 1 TO 2 DAYS. TAKE MEDICATIONS PRESCRIBED. RETURN TO ED FOR ANY NEW OR WORSENING SYMPTOMS. e-Prescriptions Quetiapine Fumerate (Seroquel Xr) 300 Mg Tab 2 TAB PO QPM for 30 Days, #60 TAB 0 Refills Prov: BERNARDA FIGUEROA 12/24/24 Discharged With: Self Critical Care Note Critical Care Time?: No Stability Stability form required: No I personally scribed for BERNARDA FIGUEROA ([email or web address]) on 12/24/24 at 10:30. Electro nically submitted by Finesse Velazquez ([email or web address]). BERNARDA FIGUEROA Dec 24, 2024 10:30
[2024-12-24 10:34] VITALS: BP 179/96; PULSE 95; RESP 18; TEMP 98.2; O2SAT 97
== END 2024-12-24 10:36 | disposition home or self-care (01) ==
LOC: ER 10:16
DX: F31.9 Bipolar disorder, unspecified (principal); F41.9 Anxiety disorder, unspecified; Z76.0 Encounter for issue of repeat prescription; Z79.899 Other long term (current) drug therapy; Z79.891 Long term (current) use of opiate analgesic

== ENCOUNTER 2025-01-29 07:54 | Emergency (ER) | payer MEDICAID ==
[~2025-01-29] VITALS: Ht 157.5 cm; Wt 83.1 kg
[2025-01-29 07:59] VITALS: BP 125/68; PULSE 102; RESP 18; TEMP 98.4; O2SAT 97
--- NOTE | 2025-01-29 11:51 | ED.PDOC ---
Psychiatric HPI Comments HPI: Sean 50 y.o female presents to the ED for a medication refill. Patient reports recently moving from [facility] to [place], established care with a PCP that she has an appointment with next month (February) but states running out of her Seroquel 600mg nightly medication. Patient reports getting medication refilled at this facility for 5 months now. Patient is asymptomatic at this time. Past Medical History: Bipolar disorder Past Surgical History: Right shoulder, hernia repair, punctured lung, and cholecystectomy Social History: Denies ETOH, smoking, and drug use. Allergies: Denies CHARM HPI: Poor Historian. REVIEW OF SYSTEMS: CONSTITUTIONAL: Denies acute: fever, diaphoresis, chills, generalized weakness. HEAD: Denies acute: headache, photophobia Eyes: Denies acute: Double vision, vision loss, eye pain, eye discharge. EARS: Denies acute: tinnitus, hearing loss, ear discharge, ear pain, THROAT: Denies acute: sore throat, swelling, difficulty swallowing , pain with swallowing, change in voice. NECK: Denies acute: neck pain, neck swelling, stiff neck. HEART: Denies acute : chest pain, palpitations, LUNGS: Denies acute: SOB, wheezing, cough, hemoptysis ABDOMEN: Denies acute: abdominal pain, Nausea, Vomiting, diarrhea, melena , hematemesis, hematochezia SKIN: Denies acute: rash, redness, lesions, itchiness. EXTREMITIES: Denies acute: calf pain, numbness, tingling, weakness, denies pain in extremity. Denies acute: Low back pain. Neuro: Denies acute: focal neurological deficit, motor or sensory focal neurological deficit, tremors, seizure like activity, confusion, dizziness, change in mental status, loss of bowel or bladder function, cauda equina like symptoms. : Denies acute: dysuria, hematuria, flank pain, increase in urinary frequency. PSYCH: Denies acute: hallucination, suicidal ideation, homicidal ideation. FEMALE: Denies acute: abnormal vaginal bleeding, foul odor, unusual discharge. PHYSICAL EXAM: General: ------no--acute distress, awake and alert. Head: normocephalic, atraumatic. Neck: supple, trachea is midline, no swelling. Throat: Normal phonation. Eyes:, no erythema, no purulent discharge, no proptosis, no icterus. Heart: regular rate, regular rhythm, no significant murmur appreciated. Lungs: no apparent respiratory distress, Able to speak in full sentences. No wheezing, no rhonchi, no crackles. No stridors Clear to auscultation bilaterally. Abdomen: non tender to palpation, non distended, soft, no guarding, no rebound, + bowel sounds. Neuro: Awake, Alert, oriented to name, self, situation, follows commands GCS=15. Speech is normal. Skin: no petechia, no purpura, no cyanosis, non-pale, not jaundice. Lower extremities: --no - Pitting edema no deformity, no focal swelling, no calf TTP. Makes eye contact. moves all four extremities. Face: no apparent facial droop. Ambulating in the ED independently. ED COURSE: DISCLAIMER: This medical document was created using an electronic medical record system with voice recognition software and computerized dictation system. Although this document has been carefully reviewed, there might still be some phonetic and ty pographical errors. Occasional wrong-word or "sound-alike" substitutions may have occurred due to the inherent limitations of voice recognition software. These areas are purely typographical due to imperfections of the software programs and do not reflect any compromise in the patient's medical care. Please read the chart carefully and recognize, using context, where these substitutions have occurred. Chief Complaint: Mental Health Time Seen by MD: 11:40 Primary Care Provider: NONE Reviewed Notes: Allergies Information Source: Patient Mode of Arrival: Ambulatory Was a procedure done? Was a procedure done?: No Psych Differential Dx Psych. Differential Dx: Anxiety, Bipolar Disorder, Depression, Hopeless, No symptoms Reported, Panic Disorder, Schizoprenia, Sleepless, Suicidal Other Differentail Dx medication refill X-Ray, Labs, Meds, VS Vital Signs Date Time Temp Pulse Resp B/P (MAP) Pulse Ox O2 Delivery O2 Flow Rate FiO2 01/29/25 07:59 98.4 102 18 125/68 97 98.4 Time of 1ST Reevaluation: 11:47 Reevaluation 1ST: Unchanged Patient Education/Counseling: Diagnosis, Treatment Family Education/Counseling: No Family Present Comments MDM: patient presented with the above HPI. Patient is here only for---medication refill--- the following medications were ordered: please refer to order lists of meds and tests obtained by myself Dr. Muniz. Patient ED course and VS have been stabilized. Patient has been reassessed in the ED and remained in a stable condition. Pertinent incidental findings were discussed with the patient and/or family. Patient/family voices understanding and is agreeable with plan. Patient has been observed in the ED adequate length of time to insure improvement/stability. Escalation of care considered: Consideration of escalation to observation or admission Patient has a close follow up. Patient was DISCHARGED home in a stable condition. All the reports of any imaging studies that were ordered by myself were reviewed by myself. Departure 1 Departure Time of Disposition: 11:56 Impression: Primary Impression: Encounter for medication refill Disposition: 01 HOME / SELF CARE / HOMELESS Condition: Stable Additional Instructions: Additional instructions: Please read all instructions provided in this packet carefully. You MUST follow-up with your primary care/family doctor in 1 to 2 days. If you are unable to see your primary care/family doctor, please return to our emergency room for re-assessment and re-evaluation in 1 to 2 days. Return to the emergency room here in our facility or to the nearest ER [facility] if your symptoms change or worsen. CONSULTATIONS: you MUST Follow-up for consultation as soon as possible with: -psychiatry psychology in 1-2 days. Please call for appointment. You MUST call the consultants office yourself to make an appointment. You may need to arrange that through your insurance and/or your primary/family doctor. If you are unable to see the solutions market consultant in 1 to 2 days, you must return to our emergency room (or any other ER of your choice) for re-assessment and re- evaluation. Adequate fluid hydration. Although you have been discharged from the Emergency Department, this does not mean that you have a "clean bill of health". No definitive diagnosis for your symptoms has been made today. It is possible that you are in the process of developing a serious illness. This is why you must return to the ED without fail if any new or worsening symptoms develop. e-Prescriptions Quetiapine Fumerate (Seroquel) 300 Mg Tab 1 TAB PO QPM for 4 Days, #4 TAB Prov: KEITH MUNIZ DO 01/29/25 Discharged With: Self Critical Care Note Critical Care Time?: No I personally scribed for KEITH MUNIZ DO ([email or web address]) on 01/29/25 at 11:50. Electronically submitted by Nuris Krishna ([facility]). KEITH MUNIZ DO Jan 29, 2025 11:50
[2025-01-29] MEDS ORDERED: QUET300T14 PO (11:58)
== END 2025-01-29 12:47 | disposition home or self-care (01) ==
LOC: ER 07:59
DX: F31.9 Bipolar disorder, unspecified (principal); Z76.0 Encounter for issue of repeat prescription; Z79.899 Other long term (current) drug therapy; Z90.49 Acquired absence of other specified parts of digestive tract; Z98.890 Other specified postprocedural states

== ENCOUNTER 2025-02-22 09:05 | Emergency (ER) | payer MEDICAID ==
[~2025-02-22] VITALS: Ht 157.5 cm; Wt 82.7 kg
[2025-02-22 09:06] VITALS: BP 161/93; PULSE 97; RESP 18; TEMP 97.1; O2SAT 95
[2025-02-22] MEDS ORDERED: QUET300T4 PO (10:08)
--- NOTE | 2025-02-22 10:10 | ED.PDOC ---
History of Present Illness HPI Comments 50 year old female with PMHx anxiety, depressions, presents to the ED with a chief compliant of medication refill onset today (02/22/25). Patient states she ran out of Seroquel 300 mg medication, came to ED for refill. She has appointment with psychiatrist in 2 weeks. No other symptoms or modifying factors present at this time. Denies headache dizziness blurred vision Denies chest pain shortness of breath Denies nausea vomiting diarrhea Denies fever chills sweats Denies numbness/tingling Chief Complaint: Mental Health Time Seen by MD: 10:05 Primary Care Provider: NONE Reviewed Notes: Nurses Notes, Medications, Allergies Allergies: Coded Allergies: NO KNOWN ALLERGIES (Unverified , 02/09/22) Home Meds Active Scripts Quetiapine Fumerate (Seroquel) 300 Mg Tab, 1 TAB PO QPM for 4 Days, #4 TAB Prov:KEITH TORRES DO 01/29/25 Quetiapine Fumerate (Seroquel Xr) 300 Mg Tab, 2 TAB PO QPM for 30 Days, #60 TAB 0 Refills Prov:BERNARDA FIGUEROA 12/24/24 Quetiapine Fumerate (Seroquel) 300 Mg Tab, 1 TAB PO QPM for 20 Days, #20 TAB 1 Refill Prov:DEMIAN EMERY MD 10/24/24 Acetaminophen (Acetaminophen) 500 Mg Tab, 500 MG PO QIDP for 10 Days, #40 TAB 0 Refills Prov:KRISTIE UGARTE CLAIMS CORRESPONDENCE CLERK 03/24/24 Tramadol Hcl (Tramadol Hcl) 50 Mg Tab, 50 MG PO TIDPRN PRN for 10 Days, #30 TAB 0 Refills Prov:KRISTIE UGARTE CLAIMS CORRESPONDENCE CLERK 03/24/24 Amlodipine Besylate (NORVASC TABLET) 5 Mg Tb, 1 TAB PO DAILY, #30 TAB 5 Refills Prov:ONUR VIEIRAP 11/05/23 Baclofen (Baclofen) 10 Mg Tab, 10 MG PO Q8HPRN PRN, #15 TAB as needed for muscle spasm Prov:ERLIN SANCHEZ CLAIMS CORRESPONDENCE CLERK 10/25/23 Ibuprofen Micronized (Ibuprofen) 600 Mg Tab, 600 MG PO Q6HPRN PRN, #20 TAB as needed for pain Prov:MELISSA SANCHEZA Q CLAIMS CORRESPONDENCE CLERK 10/25/23 Quetiapine Fumerate (Seroquel) 300 Mg Tab, 2 TAB PO QPM, #14 TAB 0 Refills As needed for insomnia Prov:ERLIN SANCHEZ Q CLAIMS CORRESPONDENCE CLERK 09/25/22 Ibuprofen Micronized (Ibuprofen) 600 Mg Tab, 600 MG PO Q8HPRN PRN, #30 TAB 0 Ref ills Prov:SIENNA HENDRICKSON EPITAXIAL REACTOR OPERATOR 08/27/22 Amoxicillin & Pot Clavulanate (AUGMENTIN TABLET) 875 Mg Tb, 875 MG PO BID for 10 Days, #20 TAB 0 Refills Prov:SIENNA HENDRICKSON EPITAXIAL REACTOR OPERATOR 08/27/22 Quetiapine Fumarate (Quetiapine Fumarate ER) 300 Mg Tab, 2 TAB PO HS, #40 TAB Prov:BERNARDA FIGUEROA 08/09/22 Quetiapine Fumerate (Seroquel Xr) 300 Mg Tab, 2 TAB PO QPM, #40 TAB 0 Refills Prov:MADHAVISIENNA M EPITAXIAL REACTOR OPERATOR 05/14/22 Tramadol Hcl (Ultram) 50 Mg Tab, 1 TAB PO TID, #20 TAB Prov:BERNARDA FIGUEROA 04/05/22 Clindamycin Hcl (Clindamycin Hcl) 300 Mg Cap, 300 MG PO QID, #40 CAP Prov:BERNARDA FIGUEROA 04/05/22 Hydrocodone-Acetaminophen (Hydrocodone Bitartrate/AC 5-325 mg) 1 Tab Tab, 1 TAB PO Q4HPRN PRN, #20 TAB Prov:CARLOS MANUEL THOMAS MD 02/13/22 Information Source: Patient Mode of Arrival: Ambulatory Severity: Moderate Timing: Hours Duration: Since onset Prehospital treatment: None Medication Refill: Ran out of Medication, For: Psychiatric (seroquel) Past Medical History PAST MEDICAL HISTORY: Anxiety, Depression Surgical History: Denies all surgeries GENERAL OFFICE WORKER History: No Pertinent GENERAL OFFICE WORKER History Family History Family History: Reviewed,noncontributory to illness, No family hx of Cancer, No family hx of DM, No family hx of Heart seth, No family hx of HTN, No family hx ofKidney seth, No family hx of Liver seth, No family hx of Lung seth, No family hx of Stroke Social History Smoker: Non-Smoker Alcohol: Denies ETOH Use Drugs: Denies Drug Use Lives In: Home All Other Systems: Reviewed and Negative (as per HPI) Physical Exam General Appearance: No Apparent Distress, Normal HEENT: Normal ENT Inspection, Pharynx Normal, TMs Normal Neck: Full Range of Motion, Non-Tender, Normal, Normal Inspection Respiratory: Chest Non-Tender, Lungs Clear, No Accessory Muscle Use, No Respiratory Distress, Normal Breath Sounds Cardiovascular: No Edema, No JVD, No Murmur, No Gallop, Normal Peripheral Pulses, Regular Rate/Rhythm Breast Exam: Deferred Gastrointestinal: No Organomegaly, Non Tender, No Pulsatile Mass, Normal Bowel Sounds, Soft Genitalia: Deferred Pelvic: Deferred Rectal: Deferred Extremities: No calf tenderness, Normal capillary refill, Normal inspection, Normal range of motion, Non-tender, No pedal edema Musculoskeletal : Apperance: Normal Neurologic: Alert, flavoring machine operator II-XII nml as Tested, No Motor Deficits, Normal Affect, Normal Mood, No Sensory Deficits Cerebellar Function: Normal Reflexes: Normal Skin: Dry, Normal Color, Warm Lymphatic: No Adenopathy Was a procedure done? Was a procedure done?: No X-Ray, Labs, Meds, VS Vital Signs Date Time Temp Pulse Resp B/P (MAP) Pulse Ox O2 Delivery O2 Flow Rate FiO2 02/22/25 09:06 97.1 97 18 161/93 95 97.1 X-Ray, Labs, Meds, VS Comment 50 year old female with PMHx anxiety, depressions, presents to the ED with a chief compliant of medication refill onset today (02/22/25). Patient arrives alert and oriented, ABC's intact, afebrile, vital signs stable, saturating well in room air Additional MDM Review of External, Non-ED records: External records reviewed. Discussion with independent historian (EMS, family) history obtained from the patient/parents (if applicable) at bedside Chronic conditions affecting care: anxiety, depression Social determinants of health affecting care: None Consideration of admission (observation or admission): I considered escalation of care to admission for this patient, however given the reassuring workup, the patient is safe for outpatient management. On reevaluation, patient had symptomatic improvement. Patient is stable for discharge at this time. External notes reviewed. Test results and diagnostic imaging interpreted. All diagnostic findings, discharge care, education and instructions provided Follow-up with PCP in 2 to 3 days Patient verbalized understanding and agreed to treatment plan Vital signs stable, afebrile, no acute distress noted Patient ambulatory with strong steady gait Advised to return precautions for any new or worsening symptoms, return to ER i mmediately for re-evaluation Patient is aware that the purpose of this visit was for an acute medical emergency requiring emergent stabilization. Chronic conditions, including malignancies have not been ruled out. Patient is instructed to follow up with PCP as directed and discharge instructions for continued care and workup. If unable to arrange follow-up, patient is to return to the emergency department for reassessment. Patient (parent or legal guardian if applicable) was given verbal and written discharge instructions and acknowledges understanding. Time of 1ST Reevaluation: 10:35 Reevaluation 1ST: Improved Patient Education/Counseling: Diagnosis, Treatment Family Education/Counseling: No Family Present SEPSIS Sepsis Screen Date sepsis recognized/suspect: Feb 22, 2025 Time Sepsis recognized/suspect: 906 Recent Procedure: No On Antibiotic Therapy: No Respiratory Rate >20: No Heart Rate >90: Yes Temp<36 C (96.8 F) or >38.3 C: No SBP <90 or MAP <65 mmHG: No New Acute Mental Status Change: No Is the patient on CPAP, BIPAP,: No Vital Signs Date Time Temp Pulse Resp B/P (MAP) Pulse Ox O2 Delivery O2 Flow Rate FiO2 02/22/25 09:06 97.1 97 18 161/93 95 97.1 Departure 1 Departure Time of Disposition: 10:09 Impression: Primary Impression: Encounter for medication refill Disposition: HOME / SELF CARE / HOMELESS Condition: Stable Discharged With: Self Critical Care Note Critical Care Time?: No Stability Stability form required: No Heart Score Heart Score: Heart Score Response (Comments) Value History N/A 0 EKG N/A 0 Age N/A 0 Risk Factors N/A 0 Troponin N/A 0 Total 0 I personally scribed for KRISTIE UGARTE NP ([email or web address]) on 02/22/25 at 10:10. Electronically submitted by Phoebe Velazquez ([email or web address]). KRISTIE UGARTE NP Feb 22, 2025 10:10
== END 2025-02-22 10:15 | disposition home or self-care (01) ==
LOC: ER 09:05
DX: F32.A Depression, unspecified (principal); F41.9 Anxiety disorder, unspecified; Z79.899 Other long term (current) drug therapy; Z76.0 Encounter for issue of repeat prescription

== ENCOUNTER 2025-04-01 07:56 | Emergency (ER) | payer MEDICAID ==
[~2025-04-01] VITALS: Ht 157.5 cm; Wt 85.2 kg
--- NOTE | 2025-04-01 08:59 | ED.PDOC ---
History of Present Illness HPI Comments A 50 YEAR OLD FEMALE PRESENTS TO THE ED WITH COMPLAINT OF MEDICATION REFILL. PATIENT IS REQUESTING A MEDICATION REFILL FOR HER SEROQUEL 300 MG QD. PATIENT DENIES FEVER, CHILLS, SHORTNESS OF BREATH, CHEST PAIN, ABDOMINAL PAIN, NAUSEA, VOMITING, HEADACHE, OR OTHER COMPLAINTS. NO OTHER SYMPTOMS OR MODIFYING FACTORS AT THIS TIME. PATIENT IS ALERT, ORIENTED X 4, AND HAS STEADY GAIT. Chief Complaint: Mental Health Time Seen by MD: 08:00 Primary Care Provider: NONE Reviewed Notes: Nurses Notes, Medications, Allergies Allergies: Coded Allergies: NO KNOWN ALLERGIES (Unverified , 02/09/22) Home Meds Active Scripts Quetiapine Fumerate (Seroquel Xr) 300 Mg Tab, 1 TAB PO QPM, #30 TAB Prov:BERNARDA FIGUEROA 04/01/25 Quetiapine Fumerate (Seroquel Xr) 300 Mg Tab, 2 TAB PO QPM, #40 TAB 0 Refills Prov:KRISTIE UGARTE NP 02/22/25 Quetiapine Fumerate (Seroquel) 300 Mg Tab, 1 TAB PO QPM for 4 Days, #4 TAB Prov:KEITH TORRES DO 01/29/25 Quetiapine Fumerate (Seroquel Xr) 300 Mg Tab, 2 TAB PO QPM for 30 Days, #60 TAB 0 Refills Prov:BERNARDA FIGUEROA 12/24/24 Quetiapine Fumerate (Seroquel) 300 Mg Tab, 1 TAB PO QPM for 20 Days, #20 TAB 1 Refill Prov:DEMIAN EMERY MD 10/24/24 Acetaminophen (Acetaminophen) 500 Mg Tab, 500 MG PO QIDP for 10 Days, #40 TAB 0 Refills Prov:KRISTIE UGARTE NP 03/24/24 Tramadol Hcl (Tramadol Hcl) 50 Mg Tab, 50 MG PO TIDPRN PRN for 10 Days, #30 TAB 0 Refills Prov:KRISTIE UGARTE NP 03/24/24 Amlodipine Besylate (NORVASC TABLET) 5 Mg Tb, 1 TAB PO DAILY, #30 TAB 5 Refills Prov:ONUR HOUSTON 11/05/23 Baclofen (Baclofen) 10 Mg Tab, 10 MG PO Q8HPRN PRN, #15 TAB as needed for muscle spasm Prov:ERLIN SANCHEZ Q THREAD TRIMMER 10/25/23 Ibuprofen Micronized (Ibuprofen) 600 Mg Tab, 600 MG PO Q6HPRN PRN, #20 TAB as needed for pain Prov:MELISSA SANCHEZA Q THREAD TRIMMER 10/25/23 Quetiapine Fumerate (Seroquel) 300 Mg Tab, 2 TAB PO QPM, #14 TAB 0 Refills As needed for insomnia Prov:MELISSA SANCHEZA Q THREAD TRIMMER 09/25/22 Ibuprofen Micronized (Ibuprofen) 600 Mg Tab, 600 MG PO Q8HPRN PRN, #30 TAB 0 Refills Prov:SIENNA HENDRICKSON M INTEGRATED CIRCUITS INSPECTOR 08/27/22 Amoxicillin & Pot Clavulanate (AUGMENTIN TABLET) 875 Mg Tb, 875 MG PO BID for 10 Days, #20 TAB 0 Refills Prov:SIENNA HENDRICKSON M INTEGRATED CIRCUITS INSPECTOR 08/27/22 Quetiapine Fumarate (Quetiapine Fumarate ER) 300 Mg Tab, 2 TAB PO HS, #40 TAB Prov:BERNARDA FIGUEROA 08/09/22 Tramadol Hcl (Ultram) 50 Mg Tab, 1 TAB PO TID, #20 TAB Prov:BERNARDA FIGUEROA 04/05/22 Clindamycin Hcl (Clindamycin Hcl) 300 Mg Cap, 300 MG PO QID, #40 CAP Prov:BERNARDA FIGUEROA 04/05/22 Hydrocodone-Acetaminophen (Hydrocodone Bitartrate/AC 5-325 mg) 1 Tab Tab, 1 TAB PO Q4HPRN PRN, #20 TAB Prov:CARLOS MANUEL THOMAS MD 02/13/22 Information Source: Patient Mode of Arrival: Ambulatory Severity: None Timing: Days Duration: Since onset, Days Prehospital treatment: None Medication Refill: Ran out of Medication, For: Other (MEDICATION REFILL FOR SEROQUEL) Past Medical History PAST MEDICAL HISTORY: Anxiety, Depression, Schizophrenia Past Medical History (Other): CHRONIC MIGRAINE HEADACHES Surgical History: Denies all surgeries FREIGHT TEAM ASSOCIATE History: No Pertinent FREIGHT TEAM ASSOCIATE History Family History Family History: Reviewed,noncontributory to illness, No family hx of Cancer, No family hx of DM, No family hx of Heart seth, No family hx of HTN, No family hx ofKidney seth, No family hx of Liver seth, No family hx of Lung seth, No family hx of Stroke Social History Smoker: Non-Smoker Alcohol: Denies ETOH Use Drugs: Denies Drug Use Lives In: Home Constitutional: denies: chills, diaphoresis, fatigue, fever, malaise, sweats, weakness, others EENTM: denies: blurred vision, double vision, ear bleeding, ear discharge, ear drainage, ear pain, ear ringing, eye pain, eye redness, hearing loss, mouth pain, mouth swelling, nasal discharge, nose bleeding, nose congestion, nose pain, photophobia, tearing, throat pain, throat swelling, voice changes, others Respiratory: denies: cough, hemoptysis, orthopnea, SOB at rest, shortness of breath, SOB with excertion, stridor, wheezing, others Cardiovascular: denies: chest pain, dizzy spells, diaphoresis, Dyspnea on exertion, edema, irregular heart beat, left arm pain, lightheadedness, palpitations, PND, syncope, others Gastrointestinal: denies: abdomen distended, abdominal pain, blood streaked bowels, constipated, diarrhea, dysphagia, difficulty swallowing, hematemesis, melena, nausea, poor appetite, poor fluid intake, rectal bleeding, rectal pain, vomiting, others Genitourinary: denies: abnormal vagina bleeding, burning, dyspareunia, dysuria, flank pain, frequency, hematuria, incontinence, pain, , vagina discharge, urgency, others Neurological: denies: dizziness, fainting, headache, left sided numbness, left sided weakness, numbness, paresthesia, pre-existing deficit, right sided numbness, right sided weakness, seizure, speech problems, tingling, tremors, w eakness, others Musculoskeletal: denies: back pain, gout, joint pain, joint swelling, muscle pain, muscle stiffness, neck pain, others Integumetry: denies: bruises, change in color, change in hair/nails, dryness, laceration, lesions, lumps, rash, wounds, others Allergic/Immunocompromised: denies: Difficulty Healing, Frequent Infections, Hives, Itching, others Hematologic/Lymphatic: denies: anemia, blood clots, easy bleeding, easy bruising, swollen glands, others Endocrine: denies: excessive hunger, excessive sweating, excessive thirst, excessive urination, flushing, intolerance to cold, intolerance to heat, unexplained weight gain, unexplained weight loss, others Psychiatric: denies: anxiety, bipolar disorder, depression, hopeless, panic disorder, schizophrenia, sleepless, suicidal, others All Other Systems: Reviewed and Negative Physical Exam General Appearance: No Apparent Distress, Normal HEENT: Normal ENT Inspection, PERRL/EOMI, Pharynx Normal, TMs Normal Neck: Full Range of Motion, Non-Tender, Normal, Normal Inspection Respiratory: Chest Non-Tender, Lungs Clear, No Accessory Muscle Use, No Respiratory Distress, Normal Breath Sounds Cardiovascular: No Edema, No JVD, No Murmur, No Gallop, Normal Peripheral Pulses, Regular Rate/Rhythm Breast Exam: Deferred Gastrointestinal: No Organomegaly, Non Tender, No Pulsatile Mass, Normal Bowel Sounds, Soft Genitalia: Deferred Pelvic: Deferred Rectal: Deferred Extremities: No calf tenderness, Normal capillary refill, Normal inspection, Normal range of motion, Non-tender, No pedal edema Musculoskeletal : Apperance: Normal Neurologic: Alert, supervisor grips II-XII nml as Tested, No Motor Deficits, Normal Affect, Normal Mood, No Sensory Deficits Cerebellar Function: Normal Reflexes: Normal Skin: Dry, Normal Color, Warm Peripheral Pulses: 2+ carotid (R), 2+ carotid (L) Lymphatic: No Adenopathy Was a procedure done? Was a procedure done?: No Differential Dx Considerations may include: ENCOUNTER FOR MEDICATION REFILL, HISTORY OF ANXIETY AND DEPRESSION X-Ray, Labs, Meds, VS Vital Signs Date Time Temp Pulse Resp B/P (MAP) Pulse Ox O2 Delivery O2 Flow Rate FiO2 04/01/25 09:00 75 18 92 Room Air 04/01/25 09:00 98.8 75 18 153/84 (107) 95 98.8 04/01/25 08:00 97.8 75 18 154/83 95 97.8 X-Ray, Labs, Meds, VS Comment EXTERNAL MEDICAL RECORDS REVIEWED: [NONE] INDEPENDENT HISTORIANS: [NONE] SOCIAL DETERMINANTS OF HEALTH: [NONE] LABS ORDERED: NONE REVIEWED AND INTERPRETED RESULTS: NONE IMAGING ORDERED: NONE TREATMENTS ORDERED: NONE PROCEDURES PERFORMED: NONE CRITICAL CARE TIME: NONE I HAVE DISCUSSED THE PATIENT WITH THE ATTENDING PHYSICIAN DR. AGARWAL AND HE AGREES WITH THE PATIENT'S PLAN OF CARE AND DISPOSITION. BASED ON HISTORY OF PRESENT ILLNESS, AND PHYSICAL EXAM, PATIENT WILL BE DISCHARGED HOME. DISCUSSED PLAN FOR DISCHARGE HOME WITH RX [SEROQUEL 300 MG]. MEDICATION WARNINGS GIVEN. SHARED DECISION MAKING: PATIENT INSTRUCTED TO FOLLOW UP WITH PRIMARY CARE PROVIDER IN 1-2 DAYS FOR RE-EVALUATION OF SYMPTOMS. PATIENT VERBALIZES UNDERSTANDING TO RETURN TO ED FOR NEW OR WORSENING SYMPTOMS OR IF FOLLOW UP WITH PCP CANNOT BE OBTAINED. PATIENT FEELS COMFORTABLE GOING HOME AT THIS TIME. ALL QUESTIONS ADDRESSED AT TIME OF DISCHARGE. Time of 1ST Reevaluation: 09:06 Reevaluation 1ST: Improved Patient Education/Counseling: Diagnosis, Treatment, Need For Follow Up Family Education/Counseling: Diagnosis, Treatment, Need For Follow Up Medical Screening: No EMC Exist At This Time SEPSIS Sepsis Screen Date sepsis recognized/suspect: Apr 01, 2025 Time Sepsis recognized/suspect: 08 Recent Procedure: No On Antibiotic Therapy: No Respiratory Rate >20: No Heart Rate >90: No Temp<36 C (96.8 F) or >38.3 C: No SBP <90 or MAP <65 mmHG: No New Acute Mental Status Change: No Is the patient on CPAP, BIPAP,: No Vital Signs Date Time Temp Pulse Resp B/P (MAP) Pulse Ox O2 Delivery O2 Flow Rate FiO2 04/01/25 09:00 75 18 92 Room Air 04/01/25 09:00 98.8 75 18 153/84 (107) 95 98.8 04/01/25 08:00 97.8 75 18 154/83 95 97.8 Departure 1 Departure Time of Disposition: 09:10 Impression: Primary Impression: Encounter for medication refill Disposition: HOME / SELF CARE / HOMELESS Condition: Stable Additional Instructions: FOLLOW-UP WITH PCP IN 1 TO 2 DAYS. TAKE MEDICATIONS PRESCRIBED. RETURN TO ED FOR ANY NEW OR WORSENING SYMPTOMS. e-Prescriptions Quetiapine Fumerate (Seroquel Xr) 300 Mg Tab 1 TAB PO QPM, #30 TAB Prov: BERNARDA FIGUEROA 04/01/25 Discharged With: Self Critical Care Note Critical Care Time?: No Stability Stability form required: No I personally scribed for BERNARDA FIGUEROA ([email or web address]) on 04/01/25 at 08:59. Electronically submitted by Finesse Velazquez ([email or web address]). BERNARDA FIGUEROA Apr 01, 2025 08:59
[2025-04-01 09:00] VITALS: BP 153/84; PULSE 75; RESP 18; TEMP 98.8; O2SAT 92
== END 2025-04-01 09:04 | disposition home or self-care (01) ==
LOC: ER 07:56
DX: F32.A Depression, unspecified (principal); F41.9 Anxiety disorder, unspecified; F20.9 Schizophrenia, unspecified; Z76.0 Encounter for issue of repeat prescription; Z79.899 Other long term (current) drug therapy; Z82.49 Family history of ischemic heart disease and other diseases of the circulatory system